=== PATIENT | male | born 1980 | race Caucasian/White ===

== ENCOUNTER 2017-02-06 20:02 | Emergency (ER) | payer SELFPAY ==
--- NOTE | 2017-02-06 20:08 | ED Physician Chart ---
Chief Complaint/HPI - Patient Information Date Seen:: 02/06/17 Time Seen:: 20:08 Chief Complaint:: foreign body in the eye History of Present Illness:: 36-year-old male, complains of acute, severe, sensation of foreign body in right eye since this morning after he was using a drill on a piece of metal. Has associated increased watery discharge and increased injected conjunctiva of the right eye. Denies any vision loss or changes. Allergies:: Allergies Allergy/AdvReac Type Severity Reaction Status Date / Time No Known Allergies Allergy Verified 05/15/16 03:53 Historian:: Patient Review:: Nurse's Note Reviewed Review of Systems - Review of Systems Other: Complete system review otherwise unremarkable except as noted in history of present illness. Past Medical History - Past Medical History Past Medical History: No significant medical hx Family History: None Social History: Smoker, No Alcohol, No Drug Use, Employed Surgical History: None Psychiatricy History: None Medication: None Family Medical History - Family Member Mother Hx Family Coronary Artery Disease: Yes Hx Family Diabetes: Yes Physical Exam - Physical Examination Other:: INITIAL VITAL SIGNS: Reviewed by me GENERAL: Alert and interactive. No acute distress HEAD: Head is normocephalic and atraumatic EYES: EOMI. PERRL. No scleral icterus. No conjunctival injection ENT: Moist mucous membranes. NECK: Supple. No masses. Full range of motion RESPIRATORY: No tachypnea. Clear breath sounds bilaterally. No wheezing, rales, or rhonchi CV: Regular rate and rhythm. No murmurs, rubs, or gallops ABDOMEN: Soft, non-distended, non-tender. No guarding. No rebound. No masses. EXTREMITIES: No deformity. No cyanosis. No edema. SKIN: Warm and dry. No obvious rashes. NEUROLOGIC: Alert and oriented. Face is symmetric. Speech is normal. Moves all extremities equally. Motor and sensory distally intact. Rubin Lamp Eye Exam w/ Wood's Lamp - right eye: Visual Acuity: Grossly normal Visual Steward: Intact in all four quadrants bilaterally Lac ducts/glands: No swelling Lids w/ evertion: Small metallic foreign body on the medial aspect of cornea over iris Conj/[place]: Clear, negative Fluorescein/Hari's Anterior Chamber: Clear Tonopen readings: 12 Retina exam: No obvious abnormality Assessment - Assessment General Assessment: SMOKING CESSATION COUNSELING: I spent greater than 3 minutes at the bedside with the patient discussing the benefits of smoking cessation, including decreased risk of heart disease, lung cancer, and emphysema. We also discussed strategies for smoking cessation, including pharmaceutical options. The patient was also encouraged to follow up with the primary care physician for outpatient follow-up. - Procedures Procedures:: Right eye foreign body removal performed by al Tetracaine ophthalmic solution used for anesthesia 18-gauge needle used to remove the metallic foreign body from the medial aspect of the cornea over the medial iris Successful removal of foreign body. Patient tolerated well. No apparent damage to cornea. Follow-up with ophthalmology precautions given. ED Septic Shock - . Is Septic Shock (SBP<90, OR Lactate>4 mmol\L) present?: No Reassessment (Disposition) - Reassessment Reassessment:: Foreign body removed from the right eye. Prescribed prophylactic Polytrim eyedrops. Follow-up PCP and ophthalmology within 1-2 days. Return to ER precautions given. Patient understands and agrees with the plan. Blood pressure was noted to be elevated over 120/80. There were no signs of hypertension. Discussed the findings with the patient and recommended that the patient follow up with the primary care physician regarding the elevated blood pressure. Reassessment Condition:: Improved - Diagnosis Diagnosis:: Acute foreign body of the right eye Elevated blood pressure without diagnosis of hypertension - Aftercare/Follow up Instructions Aftercare/Follow-Up Instructions:: Counseled pt regarding lab results/diagnosis & need follow up, Refer to Discharge Instructions - Patient Disposition Discharge/Transfer:: Home Time:: 20:53 Condition at Disposition:: Improved ED Discharge Plan - Patient Disposition Admit/Discharge/Transfer: PT DISCHARGED HOME Condition at Disposition: Improved Instructions: Eye - Foreign Body, [id number]
[2017-02-06] MEDS ORDERED: TETRACAINE HCL 0.5% OPHTH SOLN 4ML BOTTLE ONE (20:18)
[2017-02-06] MEDS ORDERED: Fluorescein Sodium 1 mg Ophth Strip ONE (20:20)
[2017-02-06] MEDS: Tetracaine 0.5% Ophth Soln 15 mL Soln RIGHT EYE ONE (21:05)
[2017-02-06] MEDS: Fluorescein Sodium 1 mg Ophth Strip RIGHT EYE ONE (21:05)
== END 2017-02-06 21:00 | disposition home or self-care (01) ==
LOC: ER 20:02
DX: T15.01XA Foreign body in cornea, right eye, initial encounter (principal); R03.0 Elevated blood-pressure reading, without diagnosis of hypertension; F17.200 Nicotine dependence, unspecified, uncomplicated
CPT/HCPCS: Z7502